=== PATIENT | male | born 1995 | race Caucasian/White ===

== ENCOUNTER 2017-01-05 18:32 | Emergency (ER) | payer SELFPAY ==
[2017-01-05] MEDS ORDERED: Ondansetron HCl/PF 4 MG/2 ML Vial ONE (18:49)
[2017-01-05 18:53] LABS: #Basophils 0.1 thou/uL (0.0-0.2); #Lymphocytes 1.1 thou/uL (1.20-3.40); #Monocytes 0.7 thou/uL (0.11-0.59); #Neutrophils 8.7 thou/uL (1.40-6.50); %Basophils 0.5 % (0.0-1.0); %Eosinophils 0.4 % (0.0-10.0); %Lymphocytes 10.6 % (21.0-51.0); %Monocytes 6.3 % (0.0-10.0); %Neutrophils 82.2 % (42.0-75.0); Hemoglobin 16.1 g/dL (14.0-18.0); Mean Corpuscular HGB CONC 34.4 g/dL (32.0-36.0); Mean Corpuscular Hemoglobin 31.5 pg (27.0-31.0); Mean Corpuscular Volume 91.5 fl (80.0-94.0); Mean Platelet Volume 9.3 fL (7.4-10.4); Platelet Count 170 thou/uL (130-400); RBC Distribution Width 12.1 % (11.5-14.5); Red Blood Cell (RBC) Count 5.12 mill/uL (4.70-6.10); White Blood Cell (WBC) Count 10.5 thou/uL (4.8-10.8)
[2017-01-05 19:08] LABS: ALT (SGPT) 15 U/L (8-55); AST (SGOT) 12 U/L (5-34); Albumin 4.2 g/dL (3.5-5.0); Alkaline Phosphatase 63 U/L (40-150); Anion Gap 16 mmol/L (10-20); BUN (Urea Nitrogen) 9 mg/dL (8.9-20.6); Bilirubin, Total 0.7 mg/dL (0.2-1.2); Calc. Creatinine Clearance 0 mL/min (70-130); Carbon Dioxide 22 mmol/L (22-29); Chloride 103 mmol/L (98-107); Estimated GFR-MDRD Greater than 90; Globulin 3.1 g/dL (2.4-3.5); Glucose 105 mg/dL (70-105); Potassium 3.5 mmol/L (3.5-5.1); Protein, Total 7.3 g/dL (6.0-8.3); Sodium 137 mmol/L (136-145)
[2017-01-05] MEDS ORDERED: Sulfameth/Trimethoprim DS 800-160mg TAB ONE (19:58)
== END 2017-01-05 19:52 | disposition home or self-care (01) ==
LOC: BURERS 18:32
DX: K52.9 Noninfective gastroenteritis and colitis, unspecified (principal); F90.9 Attention-deficit hyperactivity disorder, unspecified type; F17.210 Nicotine dependence, cigarettes, uncomplicated; Z79.2 Long term (current) use of antibiotics
CPT/HCPCS: 80053; 85025; 96361; 96374; J2405

== ENCOUNTER 2018-03-28 15:28 | Emergency (ER) | payer SELFPAY ==
[2018-03-28] MEDS ORDERED: Fluorescein Opthalmic Strip ONE (15:36)
[2018-03-28] MEDS ORDERED: Neomycin-Polymyxin-Hc 7.5 ML BOT ONE (15:45)
== END 2018-03-28 16:00 ==
LOC: BURERS 15:28
DX: T15.12XA Foreign body in conjunctival sac, left eye, initial encounter (principal); F17.210 Nicotine dependence, cigarettes, uncomplicated; F90.9 Attention-deficit hyperactivity disorder, unspecified type
CPT/HCPCS: 99283

== ENCOUNTER 2018-09-15 20:27 | Emergency (ER) | payer SELFPAY | END 2018-09-15 21:00 | disposition home or self-care (01) | LOC: BURERS 20:27 | DX: B02.9 Zoster without complications (principal); F17.210 Nicotine dependence, cigarettes, uncomplicated; F90.9 Attention-deficit hyperactivity disorder, unspecified type; Z79.899 Other long term (current) drug therapy | CPT/HCPCS: 99282 ==

== ENCOUNTER 2019-01-16 21:42 | Emergency (ER) | payer SELFPAY | END 2019-01-16 22:11 | disposition home or self-care (01) | LOC: BURERS 21:42 | DX: T18.9XXA Foreign body of alimentary tract, part unspecified, initial encounter (principal); F17.210 Nicotine dependence, cigarettes, uncomplicated; F90.9 Attention-deficit hyperactivity disorder, unspecified type; F32.9 Major depressive disorder, single episode, unspecified ==

== ENCOUNTER 2019-03-24 23:58 | Emergency (ER) | payer SELFPAY ==
[2019-03-25] MEDS ORDERED: Acetaminophen 500 MG TAB ONE (00:23)
--- NOTE | 2019-03-25 09:49 | RAD ---
RIGHT KNEE 4 VIEWS: DATE: 03/25/2019. FINDINGS: No fracture or joint effusion was seen. The joint space is normal in width and the articular surface s are smooth. IMPRESSION: No acute findings. POS: HOME
== END 2019-03-25 00:59 | disposition home or self-care (01) ==
LOC: BURERS 23:58
DX: S83.91XA Sprain of unspecified site of right knee, initial encounter (principal); F32.9 Major depressive disorder, single episode, unspecified; F90.9 Attention-deficit hyperactivity disorder, unspecified type; F17.210 Nicotine dependence, cigarettes, uncomplicated; V87.8XXA Person injured in other specified noncollision transport accidents involving motor vehicle (traffic), initial encounter

== ENCOUNTER 2020-03-27 18:30 | Emergency (ER) | payer SELFPAY ==
[2020-03-27] MEDS ORDERED: Lidocaine 1% w/Epinephrine 1:100K 20 ML VIAL ONE (19:05)
[2020-03-27] MEDS ORDERED: Bacitracin 1 PK ONE (19:55)
--- NOTE | 2020-03-28 09:27 | CT ---
CT OF THE BRAIN WITHOUT CONTRAST 03/27/20 The ventricles are normal in size with no shift. No intracranial bleeding or extra-axial hematoma was seen. The skull appears intact. There are no air fluid levels in the sphenoid sinus but the mucosal thickening is suggested in some of the paranasal sinuses. See CT of the face to follow-up. The mastoi d air cells are clear. IMPRESSION: Small soft tissue laceration above the right eye, but no acute intracranial findings. Preliminary report called to Dr. Marte at 1918 on 03/27/20. POS: HOME
--- NOTE | 2020-03-28 09:27 | RAD ---
RIGHT FOREARM TWO VIEWS: 03/27/20 The radius and ulna appear intact. No fractures were detected. No joint effusion was indicated at the elbow. IMPRESSION: No acute finding. POS: HOME
--- NOTE | 2020-03-28 09:31 | CT ---
CT OF THE FACIAL BONES WITHOUT CONTRAST: 03/27/[address] of the face was done following trauma. A soft tissue laceration is seen above the right orb it, but the underlying bones all appeared intact. No fractures were seen around the orbit, facial bon es, nasal bones, or maxilla. The retro-orbital areas appear normal. No issues were detected with eith er globe. There is some mucosal thickening in some of the ethmoid air cells and particularly in the l eft maxillary sinus. IMPRESSION: 1. Soft tissue laceration but no fracture seen. 2. Sinusitis. POS: HOME
== END 2020-03-27 20:02 | disposition home or self-care (01) ==
LOC: BURERS 18:30
DX: S01.81XA Laceration without foreign body of other part of head, initial encounter (principal); S50.811A Abrasion of right forearm, initial encounter; S70.312A Abrasion, left thigh, initial encounter; F32.9 Major depressive disorder, single episode, unspecified; F90.9 Attention-deficit hyperactivity disorder, unspecified type; F17.210 Nicotine dependence, cigarettes, uncomplicated; V86.56XA Driver of dirt bike or motor/cross bike injured in nontraffic accident, initial encounter; Y93.55 Activity, bike riding
CPT/HCPCS: 12013; 70450; 70486

== ENCOUNTER 2020-04-06 14:49 | Emergency (ER) | payer SELFPAY | END 2020-04-06 15:05 | disposition home or self-care (01) | LOC: BURERS 14:49 | DX: S01.81XD Laceration without foreign body of other part of head, subsequent encounter (principal) ==